=== PATIENT | male | born 1985 | race Caucasian/White ===

== ENCOUNTER 2021-01-15 17:46 | Emergency (ER) | payer MEDICAID ==
[~2021-01-15] VITALS: Ht 167.6 cm; Wt 91.2 kg
[2021-01-15 17:50] VITALS: BP_SYST 141
[2021-01-15] MEDS ORDERED: ACETAMINOPHEN 500 MG TABLET PO ONE (18:30)
[2021-01-15] MEDS ORDERED: IBUPROFEN 600 MG TABLET PO ONE (18:30)
[2021-01-15 18:41] LABS: BILIRUBIN,URINE NEGATIVE (NEGATIVE); BLOOD, URINE NEGATIVE (NEGATIVE); CLARITY/URINE CLEAR (CLEAR); COLOR,URINE YELLOW (YELLOW); GLUCOSE,URINE NEGATIVE (NEGATIVE); KETONES,URINE NEGATIVE (NEGATIVE); LEUKOCYTE ESTERASE ,URINE NEGATIVE (NEGATIVE); NITRITE, URINE NEGATIVE (NEGATIVE); PROTEIN URINE NEGATIVE (NEGATIVE); UROBILINOGEN,URINE 0.2 (0.2-1.0)
[2021-01-15] MEDS ORDERED: LEVO750T45 PO (19:11)
[2021-01-15] MEDS ORDERED: IBUP-1969 PO (19:11)
[2021-01-15 19:40] VITALS: BP_SYST 134
== END 2021-01-15 19:40 | disposition home or self-care (01) ==
LOC: SED 17:46
DX: N45.1 Epididymitis (principal); N44.2 Benign cyst of testis; Z79.899 Other long term (current) drug therapy
CPT/HCPCS: 76870-TC; 81003; 87491; 87591; 99284

== ENCOUNTER 2021-01-25 12:23 | Emergency (ER) | payer MEDICAID ==
[~2021-01-25] VITALS: Ht 162.6 cm; Wt 90.7 kg
[~2021-01-25 12:23] MED LIST: IBUP-1969 PO; LEVO750T45 PO
[2021-01-25] MEDS ORDERED: KETOROLAC TROMETHAMINE 60 MG/2 ML VIAL IM ONE ×2 (13:00→13:21)
[2021-01-25] MEDS ORDERED: IBUP-1969 PO (13:06)
[2021-01-25 13:39] VITALS: BP_SYST 145
[2021-01-27 08:06] LABS: CHLAMYDIA TRACHOMATIS NAA Negative (Negative); NEISSERIA GONORRHOEAE NAA Negative (Negative)
== END 2021-01-25 13:20 | disposition home or self-care (01) ==
LOC: SED 12:23
DX: N45.1 Epididymitis (principal); Z79.899 Other long term (current) drug therapy
CPT/HCPCS: 36415; 86592; 87086; 87491; 87591; 96372; 99283; J1885